=== PATIENT | female | born 1935 | race Caucasian/White ===

== ENCOUNTER → 2016-03-05 | Outpatient (CLI) | payer OTHER ==
[~2016-03-05] MED LIST: BUDE180I INH; CALCTAB5 PO; MELO7.5T6 PO; MULT-506 PO; MULT60CA PO; OMEG10007 PO; ZNTT/150 PO
[2016-03-05 10:47] LABS: BASO % 0.5 %; BASO ABS # 0.03 K/uL (0-0.2); COMPLETE YES; EOS % 1.7 %; HEMATOCRIT 40.4 % (37-47); IG% 0.2 %; LYMPH % 15.2 %; LYMPH ABS # 0.91 K/uL (1.2-3.4); MEAN CELL VOLUME 86.1 fL (80-100); MEAN CORPUSCULAR HEMOGLOBIN 30.3 pg (25-34); MEAN CORPUSCULAR HGB CONC 35.1 g/dl (32-36); MEAN PLATELET VOLUME 9.6 fL (7.4-10.4); NEUT % 73.4 %; PLATELET COUNT 234 K/uL (130-400); RED BLOOD COUNT 4.69 M/uL (4.2-5.4); WHITE BLOOD COUNT 5.98 K/uL (4.8-10.8)
[2016-03-05 11:26] LABS: ALT/SGPT 25 U/L (12-78); BLOOD UREA NITROGEN 12 mg/dl (7-18); BUN/CREATININE RATIO 15.4 (10-20); CALCIUM 9.8 mg/dl (8.5-10.1); CARBON DIOXIDE 30 mmol/L (21-32); CHLORIDE 102 mmol/L (98-107); CREATININE 0.76 mg/dl (0.60-1.20); GLUCOSE 87 mg/dl (70-99); POTASSIUM 4.4 mmol/L (3.5-5.1); SODIUM 141 mmol/L (136-145)
[2016-03-05 11:36] LABS: ALKALINE PHOSPHATASE 53 U/L (45-117); AST/SGOT 30 U/L (15-37)
== END | disposition home or self-care (01) ==
LOC: C.LAB1850 09:59
PROVIDERS: ATTEND Internal Medicine Pulmonary Disease
DX: M19.90 Unspecified osteoarthritis, unspecified site (principal); J45.909 Unspecified asthma, uncomplicated; K21.9 Gastro-esophageal reflux disease without esophagitis; E03.9 Hypothyroidism, unspecified

== ENCOUNTER → 2016-06-04 | Day surgery (SDC) | payer OTHER ==
[2016-05-29 09:15] VITALS: Ht 165.1 cm; Wt 85.0 kg
[~2016-06-04] VITALS: Ht 165.1 cm; Wt 85.0 kg
[~2016-06-04] MED LIST changes: +500ML BSS 0.3ML EPI 1:1000PF IRRIG ONE; +ACETAMINOPHEN 325 MG TAB PO PRN; +AMVISC PLUS 0.8ML SYRINGE INT OCU ONE; +ATROPINE SULFATE 0.1 MG/ML 5ML SYR IV PRN; +AcetaZOLAMIDE 250 MG TAB PO SCH; +BETAXOLOL HCL 0.25% OP SUSP PER DROP CHARGE OPL SCH; +BRIMONIDINE TART 0.2% OP SOLN PER DROP CHARGE ONE; +BSS FLUSH ONE; +ENDOCOAT 0.85ML SYRINGE INT OCU ONE; +EpHEDrine SULFATE INJ 50 MG/ML AMP IV PRN; +EpINEphrine INJ 1MG/ML AMP 1 MG/ML AMP ONE; +FENTANYL CITRATE INJ 50 MCG/1 ML 2 ML VIAL IV PRN; +FLUMAZENIL 0.1 MG/1 ML 10 ML VIAL IV PRN; +HYDROmorphone INJ 2 MG/ML SYR/VIAL IV PRN; +LABETALOL HCL IV 5 MG/ML 20ML IV PRN; +LACTATED RINGER'S 1000ML 500 ML IV SCH; +LIDOCAINE 4% OP SOLN DROP CHARGE ONE; +LIDOCAINE 4% OP SOLN DROP CHARGE OPL SCH; +LIDOCAINE HCL 1% MPF 2 ML VIAL ONE; +MEPERIDINE HCL 25 MG/ML CARP IV PRN; +MIDAZOLAM HCL 1 MG/ML 2ML VIAL ONE; +MIX: 4ML BSS 1ML EPI 1:1000 PF INSTIL ONE; +MOXIFLOXACIN OPH SOLN PER DROP CHARGE ONE; +NALOXONE HCL 0.4 MG/1 ML VIAL/CARP IV PRN; +OCUCOAT 1 ML SOLN IO ONE; +ONDANSETRON INJ 2 MG/ML 2 ML VIAL IV PRN; +PHENYLEPHRINE 100MCG/ML 5ML SYR IV PRN; +POVIDONE-IODINE OP SOLN 30 ML BTL ONE; +PROPARACAINE 0.5% OP SOLN PER DROP CHARGE OPL SCH; +TOBRAMYCIN/DEXAMETHASONE OPH OINT PER APPLN CHARGE ONE
--- NOTE | 2016-06-04 09:01 | History & Physical Bridge - [place] ---
H&P Re-Evaluation Bridge Note: I have examined the patient, reviewed the History & Physical and in the interval since the performance of the History & Physical I have noted the following changes of clinical significance: No changes noted
[2016-06-04] MEDS: PHENYLEPHRINE HCL 2.5% OP SOLN PER DROP CHARGE OPL SCH ×2 (10:41→10:46)
[2016-06-04] MEDS: TROPICAMIDE 1% OP SOLN PER DROP CHARGE OPL SCH ×2 (10:42→10:47)
[2016-06-04] MEDS: CYCLOPENTOLATE HCL 1% OP SOLN PER DROP CHARGE OPL SCH ×2 (10:43→10:48)
[2016-06-04] MEDS: MOXIFLOXACIN OPH SOLN PER DROP CHARGE OPL SCH ×2 (10:44→10:54)
--- NOTE | 2016-06-04 11:13 | Discharge Instructions-SurgCtr ---
Discharge Instructions Date of Service Jun 04, 2016. Visit Reason for Visit: Cataract Left Eye Discharge Discharge Diagnosis / Problem: lens implant left eye Discharge Goals Goal(s): Improve function Activity Recommendations Activity Limitations: resume your previous activity Lifting Limitations: no more than 10 pounds Exercise/Sports Limitations: gradually increase as tolerated May Resume Sexual Activity: when tolerated Shower/Bathe: tomorrow Driving or Machine Use: resume 1 day after discharge Anesthesia . Post Anesthesia Instructions: If you have had General Anesthesia or IV Sedation: * Do not drive today. * Resume driving when surgeon permits. * Do not make important decisions or sign legal documents today. * Call surgeon for: 1. Temperature elevations greater than 101 degrees F. 2. Uncontrollable pain. 3. Excessive bleeding. 4. Persistent nausea and vomiting. 5. Medication intolerance (nausea, vomiting or rash). * For nausea and vomiting use only clear liquids such as: tea, soda, bouillon until nausea subsides, then gradually increase diet as tolerated. * If you have any concerns or questions, call your surgeon's office. If physician is unavailable and it is an emergency, call 911 or go to the nearest emergency room. . Instructions / Follow-Up Instructions / Follow-Up ACTIVITY RECOMMENDATIONS: * Light activities. * Mild irritation and blurred vision are common for the first few days. * You may walk outside, read, watch television. * Redness around the white part of the eye is common. MEDICATIONS: Resume previous medications unless instructed otherwise by your surgeon. * Take white Diamox (Acetazolamide) tablet at 1 pm today. Start all eye drops at 1 pm today: * Eye drops (today and tomorrow): Prednisone - one drop in operative eye every 3 hours while awake Ofloxacin - one drop in operative eye every 3 hours while awake Ilevro - one drop in operative eye once a day SPECIAL CARE INSTRUCTIONS: * Tape plastic shield over eye to sleep at night. Call your doctor at with any concerns or problems. FOLLOW UP VISIT: Follow-up with Dr Ring at [place] office as scheduled. Diet Recommendations Home Diet: no limitations Procedures Procedures Performed: cataract extraction with lens implant Pending Studies Studies pending at discharge: no Medical Emergencies . Who to Call and When: Medical Emergencies: If at any time you feel your situation is an emergency, please call 911 immediately. . Non-Emergent Contact Non-Emergency issues call your: Procedures Nurse Call Non-Emergent contact if: your pain is not controlled [phone] . . "Provider Documentation" section prepared by Navid Ring.
--- NOTE | 2016-06-04 11:16 | [facility] Operative Report ---
Operative Report Date of Service Jun 04, 2016. Operative Report 1. PREOPERATIVE DIAGNOSIS: Senile nuclear cataract, left eye. 2. POSTOPERATIVE DIAGNOSIS: Senile nuclear cataract, left eye. 3. PROCEDURE: Phacoemulsification of left cataract with posterior chamber lens implant, type Jose, model [id number], power +26 diopters. ANESTHESIA: Local standby. SURGEON: Dr. Ring. COMPLICATIONS: None. OPERATING TIME: 10 minutes. 4. OPERATION AND FINDINGS: DESCRIPTION OF PROCEDURE: The left pupil was dilated. The anesthetic was administered using a topical technique. The left eye was prepped and draped. A speculum was placed. A clear corneal incision was formed. The chamber was filled with Amvisc Plus and Endocoat. Epinephrine solution was used. A paracentesis was placed. A capsulorrhexis was performed. The nucleus was hydrodissected. The lens was removed with phacoemulsification. Time was 3.28 seconds. The aspiration unit was used to remove the cortex. The capsule was filled with Amvisc Plus. The lens implant was folded and placed into the capsule. The implant was rotated to the proper position. The incision was hydrated. The Amvisc was aspirated. The wound was secure. The chamber was deep. The pupil was round. Brimonidine, TobraDex ointment and Vigamox solution were placed. The speculum was removed. The patient was returned to the Recovery Room in stable condition. I attest to the content of the Intraoperative Record and any orders documented therein. Any exceptions are noted below. The scribe's documentation has been prepared in my presence, under my direction and personally reviewed by me in its entirety. I confirm that the note above accurately reflects all work, treatment, procedures, and medical decision making performed by me. I personally scribed for Navid Ring M.D. ([email or web address]) on 06/04/16 at 11:16. Electronically submitted by Jessica Pathak ([email or web address]).
[2016-06-04 11:17] VITALS: TEMP 36.6
[2016-06-04 11:42] VITALS: BP 131/71; PULSE 88; O2SAT 98
--- NOTE | 2016-06-04 11:45 | Anesthesia Progress Nt - [facility] ---
Anesthesia Post Op Note Date & Time Jun 04, 2016 at 11:44 Vital Signs Pain Intensity: 0 Vital Signs Past 12 Hours Date Time Temp Pulse Resp B/P Pulse Ox O2 Delivery O2 Flow Rate FiO2 06/04/16 11:42 88 16 131/71 98 06/04/16 11:17 36.6 72 18 154/72 100 Room Air 06/04/16 10:25 36.5 79 16 140/82 100 Room Air Notes Mental Status: alert / awake / arousable, participated in evaluation Pt Amnestic to Procedure: Yes Nausea / Vomiting: adequately controlled Pain: adequately controlled Airway Patency, RR, SpO2: stable & adequate BP & HR: stable & adequate Hydration State: stable & adequate Anesthetic Complications: no major complications apparent
== END | disposition home or self-care (01) ==
LOC: X.SURG 09:58
PROVIDERS: ATTEND Specialist
DX: H25.12 Age-related nuclear cataract, left eye (principal); J45.909 Unspecified asthma, uncomplicated; K21.9 Gastro-esophageal reflux disease without esophagitis; M19.90 Unspecified osteoarthritis, unspecified site; Z68.30 Body mass index [BMI] 30.0-30.9, adult; E66.9 Obesity, unspecified; Z90.89 Acquired absence of other organs

== ENCOUNTER → 2016-07-04 | Outpatient (CLI) | payer OTHER ==
[~2016-07-04] MED LIST changes: -500ML BSS 0.3ML EPI 1:1000PF IRRIG ONE; -ACETAMINOPHEN 325 MG TAB PO PRN; -AMVISC PLUS 0.8ML SYRINGE INT OCU ONE; -ATROPINE SULFATE 0.1 MG/ML 5ML SYR IV PRN; -AcetaZOLAMIDE 250 MG TAB PO SCH; -BETAXOLOL HCL 0.25% OP SUSP PER DROP CHARGE OPL SCH; -BRIMONIDINE TART 0.2% OP SOLN PER DROP CHARGE ONE; -BSS FLUSH ONE; -ENDOCOAT 0.85ML SYRINGE INT OCU ONE; -EpHEDrine SULFATE INJ 50 MG/ML AMP IV PRN; -EpINEphrine INJ 1MG/ML AMP 1 MG/ML AMP ONE; -FENTANYL CITRATE INJ 50 MCG/1 ML 2 ML VIAL IV PRN; -FLUMAZENIL 0.1 MG/1 ML 10 ML VIAL IV PRN; -HYDROmorphone INJ 2 MG/ML SYR/VIAL IV PRN; -LABETALOL HCL IV 5 MG/ML 20ML IV PRN; -LACTATED RINGER'S 1000ML 500 ML IV SCH; -LIDOCAINE 4% OP SOLN DROP CHARGE ONE; -LIDOCAINE 4% OP SOLN DROP CHARGE OPL SCH; -LIDOCAINE HCL 1% MPF 2 ML VIAL ONE; -MEPERIDINE HCL 25 MG/ML CARP IV PRN; -MIDAZOLAM HCL 1 MG/ML 2ML VIAL ONE; -MIX: 4ML BSS 1ML EPI 1:1000 PF INSTIL ONE; -MOXIFLOXACIN OPH SOLN PER DROP CHARGE ONE; -NALOXONE HCL 0.4 MG/1 ML VIAL/CARP IV PRN; -OCUCOAT 1 ML SOLN IO ONE; -ONDANSETRON INJ 2 MG/ML 2 ML VIAL IV PRN; -PHENYLEPHRINE 100MCG/ML 5ML SYR IV PRN; -POVIDONE-IODINE OP SOLN 30 ML BTL ONE; -PROPARACAINE 0.5% OP SOLN PER DROP CHARGE OPL SCH; -TOBRAMYCIN/DEXAMETHASONE OPH OINT PER APPLN CHARGE ONE
--- NOTE | 2016-07-04 15:08 | MAMMOGRAPHY REPORT ---
BILATERAL DIGITAL SCREENING MAMMOGRAM WITH CAD: 07/04/2016 CLINICAL HISTORY: Routine screening. Patient has no complaints. TECHNIQUE: Current study was also evaluated with a Computer Aided Detection (CAD) system. Bilatera l CC and MLO views were obtained. COMPARISON: Comparison is made to exams dated: 07/03/2015 mammogram, 06/28/2014 mammogram, 06/27/2013 ma mmogram, 06/24/2012 mammogram, 06/23/2011 mammogram, and 06/19/2010 mammogram - [facility] nt. BREAST COMPOSITION: There are scattered areas of fibroglandular density in both breasts. FINDINGS: No suspicious masses, calcifications, or areas of architectural distortion are noted in e ither breast. There has been no significant interval change compared to prior exams. Scattered bilat eral benign-appearing calcifications are not significantly changed. IMPRESSION: ACR BI-RADS CATEGORY 2: BENIGN There is no mammographic evidence of malignancy. A 1 year screening mammogram is recommended. The p atient will receive written notification of the results. Approximately 10% of breast cancers are not detected with mammography. A negative mammographic repor t should not delay biopsy if a clinically suggestive mass is present. Manda Starkey M.D. /:07/04/2016 12:53:32 Green Chain Offbearer: Poppy CANO(Ravi)(Kwan)(BD), [facility] letter sent: Normal 1/2 BI-RADS Code: ACR BI-RADS Category 2: Benign
== END | disposition home or self-care (01) ==
LOC: C.MAMM 10:29
PROVIDERS: ATTEND Internal Medicine Pulmonary Disease
DX: Z12.31 Encounter for screening mammogram for malignant neoplasm of breast (principal)

== ENCOUNTER → 2016-07-16 | Day surgery (SDC) | payer OTHER ==
[2016-07-15 07:53] VITALS: Ht 165.1 cm; Wt 85.0 kg
[~2016-07-16] VITALS: Ht 165.1 cm; Wt 85.0 kg
[~2016-07-16] MED LIST changes: +500ML BSS 0.3ML EPI 1:1000PF IRRIG ONE; +ACETAMINOPHEN 325 MG TAB PO PRN; +AMVISC PLUS 0.8ML SYRINGE INT OCU ONE; +ATROPINE SULFATE 0.1 MG/ML 5ML SYR IV PRN; +AcetaZOLAMIDE 250 MG TAB PO SCH; +BETAXOLOL HCL 0.25% OP SUSP PER DROP CHARGE OPR SCH; +BRIMONIDINE TART 0.2% OP SOLN PER DROP CHARGE ONE; +BSS FLUSH ONE; +ENDOCOAT 0.85ML SYRINGE INT OCU ONE; +EpINEphrine INJ 1MG/ML AMP 1 MG/ML AMP ONE; +LACTATED RINGER'S 1000ML 500 ML IV SCH; +LIDOCAINE 4% OP SOLN DROP CHARGE ONE; +LIDOCAINE 4% OP SOLN DROP CHARGE OPR SCH; +LIDOCAINE HCL 1% MPF 2 ML VIAL ONE; +MIDAZOLAM HCL 1 MG/ML 2ML VIAL ONE; +MIX: 4ML BSS 1ML EPI 1:1000 PF INSTIL ONE; +MOXIFLOXACIN OPH SOLN PER DROP CHARGE ONE; +OCUCOAT 1 ML SOLN IO ONE; +POVIDONE-IODINE OP SOLN 30 ML BTL ONE; +PROPARACAINE 0.5% OP SOLN PER DROP CHARGE OPR SCH; +TOBRAMYCIN/DEXAMETHASONE OPH OINT PER APPLN CHARGE ONE
[2016-07-16] MEDS: TROPICAMIDE 1% OP SOLN PER DROP CHARGE OPR SCH ×2 (08:31→08:37)
[2016-07-16] MEDS: PHENYLEPHRINE HCL 2.5% OP SOLN PER DROP CHARGE OPR SCH ×2 (08:31→08:36)
[2016-07-16] MEDS: CYCLOPENTOLATE HCL 1% OP SOLN PER DROP CHARGE OPR SCH ×2 (08:32→08:40)
[2016-07-16] MEDS: MOXIFLOXACIN OPH SOLN PER DROP CHARGE OPR SCH ×2 (08:34→08:42)
--- NOTE | 2016-07-16 09:18 | Discharge Instructions-SurgCtr ---
Discharge Instructions Date of Service July 16, 2016. Visit Reason for Visit: Right Cataract Discharge Discharge Diagnosis / Problem: lens implant right eye Discharge Goals Goal(s): Improve function Activity Recommendations Activity Limitations: resume your previous activity Lifting Limitations: no more than 10 pounds Exercise/Sports Limitations: gradually increase as tolerated May Resume Sexual Activity: when tolerated Shower/Bathe: tomorrow Driving or Machine Use: resume 1 day after discharge Anesthesia . Post Anesthesia Instructions: If you have had General Anesthesia or IV Sedation: * Do not drive today. * Resume driving when surgeon permits. * Do not make important decisions or sign legal documents today. * Call surgeon for: 1. Temperature elevations greater than 101 degrees F. 2. Uncontrollable pain. 3. Excessive bleeding. 4. Persistent nausea and vomiting. 5. Medication intolerance (nausea, vomiting or rash). * For nausea and vomiting use only clear liquids such as: tea, soda, bouillon until nausea subsides, then gradually increase diet as tolerated. * If you have any concerns or questions, call your surgeon's office. If physician is unavailable and it is an emergency, call 911 or go to the nearest emergency room. . Instructions / Follow-Up Instructions / Follow-Up ACTIVITY RECOMMENDATIONS: * Light activities. * Mild irritation and blurred vision are common for the first few days. * You may walk outside, read, watch television. * Redness around the white part of the eye is common. MEDICATIONS: Resume previous medications unless instructed otherwise by your surgeon. * Take white Diamox (Acetazolamide) tablet at 1 pm today. Start all eye drops at 1 pm today: * Eye drops (today and tomorrow): Prednisone - one drop in operative eye every 3 hours while awake Ofloxacin - one drop in operative eye every 3 hours while awake SPECIAL CARE INSTRUCTIONS: * Tape plastic shield over eye to sleep at night. Call your doctor at with any concerns or problems. FOLLOW UP VISIT: Follow-up with Dr Ring at [place] office as scheduled. Diet Recommendations Home Diet: no limitations Procedures Procedures Performed: cataract extraction with lens implant Pending Studies Studies pending at discharge: no Medical Emergencies . Who to Call and When: Medical Emergencies: If at any time you feel your situation is an emergency, please call 911 immediately. . Non-Emergent Contact Non-Emergency issues call your: Software Development Specialist Call Non-Emergent contact if: your pain is not controlled [phone] . . "Provider Documentation" section prepared by Navid Ring. .
--- NOTE | 2016-07-16 09:20 | [facility] Operative Report ---
Operative Report Date of Service July 16, 2016. Operative Report 1. PREOPERATIVE DIAGNOSIS: Senile nuclear cataract, right eye. 2. POSTOPERATIVE DIAGNOSIS: Senile nuclear cataract, right eye. 3. PROCEDURE: Phacoemulsification of right cataract with posterior chamber lens implant, type Jose, model [id number], power +25.5 diopters. ANESTHESIA: Local standby. SURGEON: Dr. Ring. COMPLICATIONS: None. OPERATING TIME: 10 minutes. 4. OPERATION AND FINDINGS: DESCRIPTION OF PROCEDURE: The right pupil was dilated. The anesthetic was administered using a topical technique. The right eye was prepped and draped. A speculum was placed. A clear corneal incision was formed. The chamber was filled with Amvisc Plus and Endocoat. Epinephrine solution was used. A paracentesis was placed. A capsulorrhexis was performed. The nucleus was hydrodissected. The lens was removed with phacoemulsification. Time was 3.70 seconds. The aspiration unit was used to remove the cortex. The capsule was filled with Amvisc Plus. The lens implant was folded and placed into the capsule. The lens implant was rotated to the correct position. The incision was hydrated. The Amvisc was aspirated. The wound was secure. The chamber was deep. The pupil was round. Brimonidine, TobraDex ointment and Vigamox solution were placed. The speculum was removed. The patient was returned to the Recovery Room in stable condition. I attest to the content of the Intraoperative Record and any orders documented therein. Any exceptions are noted below. The scribe's documentation has been prepared in my presence, under my direction and personally reviewed by me in its entirety. I confirm that the note above accurately reflects all work, treatment, procedures, and medical decision making performed by me. I personally scribed for Navid Ring M.D. (KIKA) on 07/16/16 at 09:20. Electronically submitted by Jessica WAKEFIELD).
[2016-07-16 09:22] VITALS: TEMP 36.7
--- NOTE | 2016-07-16 09:39 | Anesthesia Progress Nt - [facility] ---
Anesthesia Post Op Note Date & Time July 16, 2016 at 09:40 Vital Signs Pain Intensity: 0 Vital Signs Past 12 Hours Date Time Temp Pulse Resp B/P Pulse Ox O2 Delivery O2 Flow Rate FiO2 07/16/16 09:22 36.7 87 16 121/74 96 Room Air 07/16/16 08:19 36.3 70 18 148/82 98 Room Air Notes Mental Status: alert / awake / arousable, participated in evaluation Pt Amnestic to Procedure: Yes Nausea / Vomiting: adequately controlled Pain: adequately controlled Airway Patency, RR, SpO2: stable & adequate BP & HR: stable & adequate Hydration State: stable & adequate Anesthetic Complications: no major complications apparent
[2016-07-16 09:42] VITALS: BP 112/76; PULSE 81; O2SAT 98
== END | disposition home or self-care (01) ==
LOC: X.SURG 08:04
PROVIDERS: ATTEND Specialist
DX: H25.11 Age-related nuclear cataract, right eye (principal); J45.909 Unspecified asthma, uncomplicated; E03.9 Hypothyroidism, unspecified; Z79.899 Other long term (current) drug therapy

== ENCOUNTER → 2017-03-10 | Outpatient (CLI) | payer OTHER ==
[~2017-03-10] MED LIST changes: -500ML BSS 0.3ML EPI 1:1000PF IRRIG ONE; -ACETAMINOPHEN 325 MG TAB PO PRN; -AMVISC PLUS 0.8ML SYRINGE INT OCU ONE; -ATROPINE SULFATE 0.1 MG/ML 5ML SYR IV PRN; -AcetaZOLAMIDE 250 MG TAB PO SCH; -BETAXOLOL HCL 0.25% OP SUSP PER DROP CHARGE OPR SCH; -BRIMONIDINE TART 0.2% OP SOLN PER DROP CHARGE ONE; -BSS FLUSH ONE; -ENDOCOAT 0.85ML SYRINGE INT OCU ONE; -EpINEphrine INJ 1MG/ML AMP 1 MG/ML AMP ONE; -LACTATED RINGER'S 1000ML 500 ML IV SCH; -LIDOCAINE 4% OP SOLN DROP CHARGE ONE; -LIDOCAINE 4% OP SOLN DROP CHARGE OPR SCH; -LIDOCAINE HCL 1% MPF 2 ML VIAL ONE; -MIDAZOLAM HCL 1 MG/ML 2ML VIAL ONE; -MIX: 4ML BSS 1ML EPI 1:1000 PF INSTIL ONE; -MOXIFLOXACIN OPH SOLN PER DROP CHARGE ONE; -OCUCOAT 1 ML SOLN IO ONE; -POVIDONE-IODINE OP SOLN 30 ML BTL ONE; -PROPARACAINE 0.5% OP SOLN PER DROP CHARGE OPR SCH; -TOBRAMYCIN/DEXAMETHASONE OPH OINT PER APPLN CHARGE ONE
[2017-03-10 09:47] LABS: BASO % 0.6 %; BASO ABS # 0.04 K/uL (0-0.2); EOS % 2.9 %; HEMATOCRIT 41.5 % (37-47); HEMOGLOBIN 14.4 g/dL (12.0-16.0); IG# 0.01 K/uL (0.00-0.02); LYMPH % 18.3 %; LYMPH ABS # 1.26 K/uL (1.2-3.4); MEAN CELL VOLUME 86.8 fL (80-100); MEAN CORPUSCULAR HEMOGLOBIN 30.1 pg (25-34); MEAN CORPUSCULAR HGB CONC 34.7 g/dl (32-36); MEAN PLATELET VOLUME 9.9 fL (7.4-10.4); MONO % 7.8 %; MONO ABS # 0.54 K/uL (0.11-0.59); NEUT % 70.3 %; NEUT ABS # 4.83 K/uL (1.4-6.5); PLATELET COUNT 228 K/uL (130-400); RED CELL DISTRIBUTION WIDTH CV 13.3 % (11.5-14.5); RED CELL DISTRIBUTION WIDTH SD 42.4 fL (36.4-46.3); WHITE BLOOD COUNT 6.88 K/uL (4.8-10.8)
[2017-03-10 10:15] LABS: ALBUMIN 3.5 gm/dl (3.4-5.0); ALT/SGPT 23 U/L (12-78); BLOOD UREA NITROGEN 14 mg/dl (7-18); CALCIUM 9.3 mg/dl (8.5-10.1); CARBON DIOXIDE 30 mmol/L (21-32); CREATININE 0.73 mg/dl (0.60-1.20); GLUCOSE 95 mg/dl (70-99); POTASSIUM 4.2 mmol/L (3.5-5.1); SODIUM 138 mmol/L (136-145)
[2017-03-10 10:26] LABS: ALKALINE PHOSPHATASE 53 U/L (45-117); AST/SGOT 30 U/L (15-37); TOTAL PROTEIN 7.4 gm/dl (6.4-8.2)
== END | disposition home or self-care (01) ==
LOC: C.LAB1850 08:56
PROVIDERS: ATTEND Internal Medicine Pulmonary Disease
DX: M19.90 Unspecified osteoarthritis, unspecified site (principal); J45.909 Unspecified asthma, uncomplicated; E03.9 Hypothyroidism, unspecified; K21.9 Gastro-esophageal reflux disease without esophagitis; H35.30 Unspecified macular degeneration

== ENCOUNTER → 2017-06-19 | Outpatient (CLI) | payer OTHER ==
[~2017-06-19] MED LIST changes: +RANI150T85 PO; -ZNTT/150 PO
--- NOTE | 2017-06-19 11:51 | DIAGNOSTIC IMAGING REPORT ---
L-SPINE MIN 4 VIEWS ROUTINE HISTORY: 82 years-old Female M54.30 M51.36 R25.1 chronic low back pain COMPARISON: Pelvis radiograph 09/02/2010 TECHNIQUE: 5 views of the lumbar spine FINDINGS: 23 degrees dextroscoliosis of the lumbar spine measured from L2-L4. There is no acute fracture or subluxation identified. Moderate to severe intervertebral disc space narrowing seen at the L3-L4 level. Mild to moderate intervertebral disc space narrowing is seen at several levels. Moderate multilevel spondylitic spurring with facet arthrosis. Large bridging osteophyte is seen at the L5-S1 level. No definite acute fracture or subluxation is identified. Moderate Schmorl's node involves the superior endplate L2. No spondylolysis or spondylolisthesis identified. Surgical clips project over the right abdomen. Atherosclerosis of the aorta. IMPRESSION: 1. No acute fracture or subluxation identified. 2. Multilevel degenerative changes as above. 3. Dextroscoliosis. The above report was generated using voice recognition software. It may contain grammatical, syntax or spelling errors. Electronically signed by: Alf Piña M.D. 06/19/2017 11:49 AM Dictated Date/Time: 06/19/2017 11:47 AM
[2017-06-19 12:35] LABS: BASO % 0.5 %; BASO ABS # 0.03 K/uL (0-0.2); EOS % 0.9 %; EOS ABS # 0.06 K/uL (0-0.5); HEMATOCRIT 39.8 % (37-47); HEMOGLOBIN 13.9 g/dL (12.0-16.0); IG# 0.01 K/uL (0.00-0.02); LYMPH % 13.5 %; LYMPH ABS # 0.87 K/uL (1.2-3.4); MEAN CELL VOLUME 85.4 fL (80-100); MEAN CORPUSCULAR HEMOGLOBIN 29.8 pg (25-34); MEAN CORPUSCULAR HGB CONC 34.9 g/dl (32-36); MEAN PLATELET VOLUME 9.4 fL (7.4-10.4); MONO % 9.9 %; MONO ABS # 0.64 K/uL (0.11-0.59); NEUT ABS # 4.85 K/uL (1.4-6.5); PLATELET COUNT 212 K/uL (130-400); RED CELL DISTRIBUTION WIDTH CV 13.3 % (11.5-14.5); RED CELL DISTRIBUTION WIDTH SD 40.9 fL (36.4-46.3); WHITE BLOOD COUNT 6.46 K/uL (4.8-10.8)
[2017-06-19 13:15] LABS: ALBUMIN 3.6 gm/dl (3.4-5.0); ALT/SGPT 25 U/L (12-78); AST/SGOT 32 U/L (15-37); BLOOD UREA NITROGEN 16 mg/dl (7-18); CALCIUM 8.7 mg/dl (8.5-10.1); CARBON DIOXIDE 31 mmol/L (21-32); CREATININE 0.82 mg/dl (0.60-1.20); GLUCOSE 96 mg/dl (70-99); POTASSIUM 4.4 mmol/L (3.5-5.1); SODIUM 137 mmol/L (136-145)
[2017-06-19 13:25] LABS: ALKALINE PHOSPHATASE 56 U/L (45-117); TOTAL PROTEIN 7.4 gm/dl (6.4-8.2)
== END | disposition home or self-care (01) ==
LOC: C.RAD1850 11:22
PROVIDERS: ATTEND Internal Medicine Pulmonary Disease
DX: M51.36 Other intervertebral disc degeneration, lumbar region (principal); M54.30 Sciatica, unspecified side; R25.1 Tremor, unspecified; M47.816 Spondylosis without myelopathy or radiculopathy, lumbar region

== ENCOUNTER → 2017-06-26 | Outpatient (CLI) | payer OTHER ==
--- NOTE | 2017-06-26 10:37 | DIAGNOSTIC IMAGING REPORT ---
R HIP UNILATERAL 2 VIEWS CLINICAL HISTORY: Right hip pain. COMPARISON: Pelvis and right hip radiograph September 02, 2010. FINDINGS: Alignment of the right hip is anatomic. Calcific density along the greater trochanter is chronic. There is no fracture or suspicious lesion. There is mild joint space narrowing and moderate osteophytosis of the right hip. There is no radiographic evidence for avascular necrosis. IMPRESSION: 1. No acute fracture. 2. Mild to moderate osteoarthritis of the right hip. Electronically signed by: Luis Valladares M.D. 06/26/2017 10:36 AM Dictated Date/Time: 06/26/2017 10:34 AM
== END | disposition home or self-care (01) ==
LOC: C.RAD1850 10:21
PROVIDERS: ATTEND Physician Assistant Medical
DX: M25.551 Pain in right hip (principal)

== ENCOUNTER → 2017-07-06 | Outpatient (CLI) | payer OTHER ==
--- NOTE | 2017-07-07 15:04 | MAMMOGRAPHY REPORT ---
BILATERAL DIGITAL SCREENING MAMMOGRAM TOMOSYNTHESIS WITH CAD: 07/06/2017 CLINICAL HISTORY: Routine screening. Patient has no complaints. TECHNIQUE: Breast tomosynthesis in addition to standard 2D mammography was performed. Current study was also evaluated with a Computer Aided Detection (CAD) system. COMPARISON: Comparison is made to exams dated: 07/04/2016 mammogram, 07/03/2015 mammogram, 06/28/2014 ma mmogram, 06/27/2013 mammogram, 06/24/2012 mammogram, and 06/23/2011 mammogram - [facility] er. BREAST COMPOSITION: There are scattered areas of fibroglandular density in both breasts. FINDINGS: There are mild to moderate vascular calcifications in the breasts. Scattered benign-appear ing coarse and round calcification. No obvious new mass, architectural distortion or cluster of micr ocalcifications is seen. IMPRESSION: ACR BI-RADS CATEGORY 1: NEGATIVE There is no mammographic evidence of malignancy. A 1 year screening mammogram is recommended. The pa tient will receive written notification of the results. Approximately 10% of breast cancers are not detected with mammography. A negative mammographic report should not delay biopsy if a clinically suggestive mass is present. Velia Segura M.D. ay/:07/06/2017 16:54:28 Cold Patcher: Poppy CHAMPAGNE)(Kwan)([place]), [facility] letter sent: Normal 1/2 BI-RADS Code: ACR BI-RADS Category 1: Negative
== END | disposition home or self-care (01) ==
LOC: C.MAMM 11:40
PROVIDERS: ATTEND Internal Medicine Pulmonary Disease
DX: Z12.31 Encounter for screening mammogram for malignant neoplasm of breast (principal)

== ENCOUNTER 2022-09-16 21:10 | Inpatient (IN) ==
--- NOTE | 2022-09-16 21:32 | Emergency Department Note ---
Impression & Plan Fall, SAH (subarachnoid hemorrhage), Comfort measures only status, AMS (altered mental status), Laceration of eyebrow, right ED Provider Note Provider: Xu Fish MD DATE OF SERVICE: 09/16/2022 CHIEF COMPLAINT: Fall, unresponsive HISTORY OF PRESENT ILLNESS: Patient is a 87-year-old female past medical history including aortic stenosis status post TAVR, GERD, asthma, arthritis, and hypothyroidism presenting today via ambulance from her home. Last seen by me around 1 PM according to family. Evidently found by granddaughter in a walkway in her house had fallen. There is bleeding and evidence of trauma to the right upper head and the patient was nonverbal. May be flexed her hand little bit to stimuli but was otherwise unresponsive. EMS activated. Wound to the head reported by EMS and the patient is again minimally responsive. Helicopter crew was called but family produce a living will and states that the patient would not want any aggressive measures and want comfort measures for the patient. As such EMS did not provide RSI and provide a small mount of fentanyl Versed for comfort and patient was brought here for further evaluation. Upon arrival patient with nonrebreather in c-collar placed on a backboard not responding. Right tibial IO in place upon arrival PAST MEDICAL HISTORY: As noted above MEDICATIONS: Reviewed home medications includes aspirin SOCIAL HISTORY: Resides at her home PHYSICAL EXAM: GENERAL: Unresponsive to painful stimuli with agonal breathing nonrebreather in place Head: Appears to have a small right eyebrow laceration ~2cm with dried blood and matted blood throughout the hair. Contusion to the right face and head and around the right eye. EYES: No injection or icterus noted with dried blood again diffusely across the face. Pupils 2 mm and fixed bilaterally NECK: Trachea midline. Supple c-collar initially in place ENT: Patient with some dried blood across the mouth occasionally a bit of gurgling sound noted. LUNGS: Airway patent. No retractions. Breath sounds noted bilaterally. HEART: Regular rate and rhythm. No chest wall tenderness ABDOMEN: Soft and non-tender without obvious contusion. SKIN: Acyanotic with dried blood and skin tears as detailed here otherwise. EXTREMITIES: Patient with skin tears to the right forearm and elbow region. Some dried blood present across right upper extremity. Right tibial IO in place. NEUROLOGICAL: Unresponsive to painful stimuli with a clenched mouth. Differential includes Fracture, dislocation, contusion, intra-abdominal, pneumothorax, intrathoracic, intracranial, neurologic, compartment syndrome, rhabdomyolysis, as well as other pathologies. IMPRESSION/MEDICAL DECISION MAKING: EMS arrived with the patient. They have a living will stating the patient would not want aggressive measures. Patient with nursing staff assistance removed from backboard. Nonrebreather in place agonal breathing nonresponsive. Family in the waiting room and discussed with them patient's status and they all agree that the patient would not want any aggressive measures or intubation. They report that the patient may be on a blood thinner. Were agreeable to obtain basic imaging to evaluate for severity of injuries for prognostication purposes. They agree that the goal at this time will be comfort. Will defer labs given this. CTs obtained per radiology reports show evidence of acute subarachnoid hemorrhage with bilateral frontal and parietal lobes with some right frontal temporal soft tissue swelling. No evidence of a cervical spine injury. No evidence of any significant chest or abdominal injury on reports. Discussed with the hospitalist met with the hospitalist as well as the patient's family in room B2. Discussed with him the seriousness of the head injury and breathing. They confirmed the patient would not want any aggressive measures or transfer for tertiary care or neurosurgical intervention. They wish to pursue comfort measures. Comfort measure order set initiated. Subarachnoid hemorrhage is serious and with her somewhat tenuous respiratory status with comfort medication time to expiration may be somewhat tenuous. Will defer any additional blood draws or testing or suture repair at this time given her comfort measure status. We will not utilize the IO but will leave in place to prevent any additional discomfort at this time with removal. DIAGNOSIS: Fall, subarachnoid hemorrhage, transition to comfort measures DISPOSITION: Hospitalist will evaluate as the patient and family wish to pursue comfort measures Critical Care I have personally spent 33 minutes of critical care time in the direct management of this patient. This includes bedside care, interpretation of diagnostic studies, and testing, discussion with consultants, and family members, and other required patient management activities. These 33 minutes is in excess of all separately billable procedures. Past Med/Surg History Medical History Aortic stenosis Arthritis Asthma Disc degeneration, lumbar GERD without esophagitis Hypothyroidism Macular degeneration Surgical History History of cholecystectomy History of thyroid surgery sub-total thyroidectomy S/P partial colectomy Status post colonoscopy (2009) Family History Aunt Diabetes Uncle Diabetes Social History Smoking Status: Unknown if ever smoked Hx Alcohol Use: No Hx Substance Use: No Preferred Language: Yi Communication Ability: Effective Beliefs That Will Affect Care: None marital status: / Current Living Situation: Alone current occupational status: retired Feels Safe at Home: Yes Assistive Devices: None Allergies Allergies Allergy/AdvReac Type Severity Reaction Status Date / Time prednisone Allergy edema Verified 05/19/22 10:45 acetaminophen AdvReac Mild STOMACH Verified 05/19/22 10:45 CRAMPS Home Meds Home Medications Medication Instructions Recorded Confirmed multivitamin (Daily Multi-Vitamin 1 tab PO DAILY 10/01/18 09/06/22 tablet) aspirin 81 mg tablet,delayed 81 mg PO DAILY 12/14/19 09/06/22 release levothyroxine 125 mcg tablet 125 mcg PO DAILYBB 09/06/22 09/06/22 metoprolol succinate 25 mg 12.5 mg PO HS 09/06/22 09/06/22 tablet,extended release 24 hr omega-3s 300 xe-sbs-zyd-other 1 cap PO DAILY 09/06/22 09/06/22 [id number] oil 1,000 mg capsule ([place]-3 Fish Oil) Results & Data (ED) Vital Signs Vital Signs - 24 hr 09/16/22 21:19 09/16/22 21:28 09/16/22 22:04 Temperature 35.8 C L Temperature Source Rectal Pulse Rate 64 56 L 53 L Pulse Rate from SpO2 Sensor 51 L Pulse Rhythm Regular Pulse Strength Normal Respiratory Rate 24 25 H Respiratory Effort / Characteristics Labored Respiratory Depth Shallow Respiratory Pattern See-Saw Blood Pressure 129/64 174/59 H Blood Pressure Mean 85 97 Pulse Oximetry 100 100 Oxygen Delivery Method Non-rebreather Non-rebreather Oxygen Flow Rate 15 15 Sepsis Recent Fever Within 48 Hours No Sepsis New/Unexplained Change in Mental Status N/A Sepsis Action Taken by Nursing No Action Required Imaging Data Radiologist's Impression: Abdomen/Pelvis CT 09/16/22 21:26 Exam(s): CT ABDOMEN + PELVIS Without Contrast EXAM: CT Abdomen and Pelvis Without Intravenous Contrast CLINICAL HISTORY: Reason for exam: fall. TECHNIQUE: Axial computed tomography images of the abdomen and pelvis without intravenous contrast. CTDI is 22.23 mGy and DLP is 1051.25 mGy-cm. Automated exposure control was utilized for the study. A dose lowering technique was utilized adhering to the principles of ALARA. COMPARISON: No relevant prior studies available. FINDINGS: Lung bases: Unremarkable. No mass. No consolidation. Heart: Prosthetic aortic valve. ABDOMEN: Liver: Unremarkable. Gallbladder and bile ducts: Cholecystectomy. No ductal dilation. Pancreas: Unremarkable. No ductal dilation. Spleen: Calcified splenic granulomas. Adrenals: Unremarkable. No mass. Kidneys and ureters: Nonobstructing 4 mm RIGHT lower pole renal calculus. Left-sided parapelvic cysts. No obstructive uropathy. Stomach and bowel: Diverticulosis, without acute diverticulitis. No small bowel obstruction. No free intraperitoneal air. PELVIS: Appendix: No findings to suggest acute appendicitis. Bladder: Distended urinary bladder. No stones. Reproductive: Atrophied uterus. ABDOMEN and PELVIS: Intraperitoneal space: Unremarkable. No free air. No significant fluid collection. Bones/joints: Degenerative changes of the spine. No acute fracture. No dislocation. Soft tissues: Unremarkable. Vasculature: Atherosclerotic changes of the aorta. No abdominal aortic aneurysm. Lymph nodes: Unremarkable. No enlarged lymph nodes. IMPRESSION: No acute findings in the abdomen or pelvis. Electronically signed by: Yonatan Rendon MD 09/16/22 22:[address] 09/16/22 21:26 Exam(s): CT C SPINE EXAM: CT Cervical Spine Without Intravenous Contrast CLINICAL HISTORY: Reason for exam: fall. TECHNIQUE: Axial computed tomography images of the cervical spine without intravenous contrast. CTDI is 22.64 mGy and DLP is 438.92 mGy-cm. Automated exposure control was utilized for the study. A dose lowering technique was utilized adhering to the principles of ALARA. COMPARISON: No relevant prior studies available. FINDINGS: The vertebral body heights are maintained. The craniocervical junction is intact. The atlanto-dens interval is maintained. The dens is intact. There is no spondylolisthesis. Multilevel cervical spondylosis and degenerative disc disease. Straightening of the cervical lordosis. The unenhanced neck soft tissues are grossly unremarkable. The visualized lung apices are grossly clear. IMPRESSION: No acute fracture or subluxation of the cervical spine. Electronically signed by: Yonatan Rendon MD 09/16/22 22:[address] 09/16/22 21:26 Exam(s): CT CHEST Without Contrast EXAM: CT Chest Without Intravenous Contrast CLINICAL HISTORY: Reason for exam: fall. TECHNIQUE: Axial computed tomography images of the chest without intravenous contrast. CTDI is 19 mGy and DLP is 680.79 mGy-cm. Automated exposure control was utilized for the study. A dose lowering technique was utilized adhering to the principles of ALARA. COMPARISON: No relevant prior studies available. FINDINGS: Lungs: Mild atelectasis in the RIGHT upper lobe and LEFT lung base. Pleural space: Unremarkable. No pneumothorax. No significant effusion. Heart: Prosthetic aortic valve. No significant pericardial effusion. No significant coronary artery calcifications. Bones/joints: Degenerative changes of the spine. No acute fracture. No dislocation. Soft tissues: Unremarkable. Vasculature: Atherosclerotic changes of the aorta. No thoracic aortic aneurysm. Lymph nodes: Unremarkable. No enlarged lymph nodes. IMPRESSION: No acute findings in the chest. Electronically signed by: Yonatan Rendon MD 09/16/22 22:[address] 09/16/22 21:26 CR Exam(s): CT HEAD Without Contrast EXAM: CT Head Without Intravenous Contrast CLINICAL HISTORY: Reason for exam: fall. TECHNIQUE: Axial computed tomography images of the head/brain without intravenous contrast. CTDI is 37.01 mGy and DLP is 546.36 mGy-cm. Automated exposure control was utilized for the study. A dose lowering technique was utilized adhering to the principles of ALARA. COMPARISON: No relevant prior studies available. FINDINGS: Acute subarachnoid hemorrhage in the bilateral frontal and parietal lobe sulci. RIGHT frontal and temporal scalp soft tissue swelling. Chronic LEFT subdural hematoma measures 7 mm in maximal thickness. Chronic RIGHT subdural hematoma measures 4 mm in maximal thickness. No intraventricular blood. No midline shift. IMPRESSION: Acute subarachnoid hemorrhage in the bilateral frontal and parietal lobe sulci. RIGHT frontal and temporal scalp soft tissue swelling. Communications: Verify Receipt Electronically signed by: Yonatan Rendon MD 09/16/22 22:03 PM Discharge Plan Visit Data Chief Complaint: Trauma ED Provider: Xu Fish Discharge Problem: Fall, SAH (subarachnoid hemorrhage), Comfort measures only status, AMS (altered mental status), Laceration of eyebrow, right Patient Disposition: Being Evaluated by Hospitalist Forms Stand Alone Forms: My [facility] Prescriptions Prescriptions: No Action multivitamin [Daily Multi-Vitamin] tablet 1 tab PO DAILY aspirin 81 mg tablet,delayed release (DR/EC) 81 mg PO DAILY levothyroxine 125 mcg tablet 125 mcg PO DAILYBB metoprolol succinate 25 mg tablet extended release 24 hr 12.5 mg PO HS [place]-3 Fish Oil 300-1,000 mg Capsule 1 cap PO DAILY Referrals Referrals: Rhett Levine MD [Primary Care Provider] - Fall Qualifiers: Encounter type: initial encounter Qualified Code(s): W19.XXXA - Unspecified fall, initial encounter
--- NOTE | 2022-09-16 21:42 | History & Physical Report ---
Date of Service September 16, 2022 Assessment & Plan (1) SAH (subarachnoid hemorrhage): Plan: [employer] - On admission patient was seen at the bedside with multiple family present including 2 daughters, granddaughters, and in-laws. [id number] reports that she was found down with her last known normal around 11:30 in the morning, was seen lying on the ground and EMS was called. She was unresponsive in the field. Per family she had a very clear advanced directive and had not wanted any invasive interventions or artificial prolongation of her life. With her current level of illness all family members agree that she would want to focus purely on comfort and family request moved to comfort measures. They are aware that she has a subarachnoid bleed which would typically be treated at a trauma center with neurosurgery available and with intensive care admission to follow for careful blood pressure control and seizure prevention. they report that they would not want aggressive interventions including ICU admission, and all family agrees that they would like her to be admitted to the third floor here for [employer]. Would like to focus on a palliative stent including morphine either by oral or drip, anxiety control, and deferring vital checks and any monitoring disruptive to her comfort. Tachypneic, on nonrebreather initial assessment Does not withdraw to thumb pinch bilaterally Pupils are slightly reactive to light bilaterally, does not track light or follow commands Patient is with respiratory distress, morphine GTT started while in ER. Continue morphine gtt Ativan ordered for comfort Comfort care order set including glycopyrrolate on-call Patient is with a right IO in place, will leave for analgesic assess's and is more likely to cause discomfort during removal Palliative care consulted Wean oxygen patient comfort permitting Family at bedside, updated. Patient is unresponsive and in mild respiratory distress. Due to her acute level of illness is not appropriate for and unlikely to survive transition to home hospice if attempted at this time. Will admit to inpatient [employer] Fall, SAH -CT-Head: Acute subarachnoid hemorrhage in the bilateral frontal and parietal lobe sulci.RIGHT frontal and temporal scalp soft tissue swelling. -CT-CHest: No acute findings in the chest. -CT C SPine: No acute fracture or subluxation of the cervical spine. -CT-A/p: No acute findings in the abdomen or pelvis. Aortic stenosis s/p TAVR 08/2019 Prior to TAVR in 2019 was noted to have a 50-60% isolated LAD lesion on pre- TAVR cath Noted Hypothyroidism Synthroid 125 mcg deferred in the setting of [employer] Asthma No home inhaler, no Hypertension Metoprolol, aspirin held in the setting of CM Primary adenocarcinoma of the colon Noted DVT prophylaxis: Deferred Diet: Unable to tolerate diet as is obtunded at time of admission CODE STATUS: DNR/DNI Disposition: Medical surgical incision (2) Comfort measures only status: (3) CHI (closed head injury): (4) Fall: (5) S/P TAVR (transcatheter aortic valve replacement): (6) Hypothyroidism: (7) GERD without esophagitis: (8) Asthma: (9) Arthritis: History of Present Illness Primary Care Provider: Rhett Levine MD Marianela Lopez is an 87-year-old female With past medical history of TAVR, GERD, asthma, arthritis, hypothyroidism. Per ER report: Patient was found down by family in her home with bleeding at the right upper head, nonverbal, flexed position and unresponsive. EMS was called and patient was noted to be minimally responsive. Patient was recommended for RSI in the field however family noted that she has a living will and does not want a measure of measures and would want comfort measures given the situation, intubation was deferred and patient was brought to [facility] in a c-collar Patient was seen at the bedside with multiple family present including 2 daughters, granddaughters, and in-laws. [id number] reports that she was found down with her last known normal around 11:30 in the morning, was seen lying on the ground and EMS was called. She was unresponsive in the field. Per family she had a very clear advanced directive and had not wanted any invasive interventions or artificial prolongation of her life. With her current level of illness all family members agree that she would want to focus purely on comfort and family request moved to comfort measures. They are aware that she has a subarachnoid bleed which would typically be treated at a trauma center with neurosurgery available and with intensive care admission to follow for careful blood pressure control and seizure prevention. they report that they would not want aggressive interventions including ICU admission, and all family agrees that they would like her to be admitted to the third floor here for [employer]. Would like to focus on a palliative stent including morphine either by oral or drip, anxiety control, and deferring vital checks and any monitoring disruptive to her comfort. Medical History: Reviewed Medications: Reviewed Surgical History: Reviewed Family history: Reviewed Allergies: Reviewed Social History: Reviewed Code Status: [employer], DNR/DNI Allergies Allergy/AdvReac Type Severity Reaction Status Date / Time prednisone Allergy edema Verified 05/19/22 10:45 acetaminophen AdvReac Mild STOMACH Verified 05/19/22 10:45 CRAMPS Home Medications Medication Instructions Recorded Confirmed Type multivitamin (Daily Multi-Vitamin 1 tab PO DAILY 10/01/18 09/06/22 History tablet) aspirin 81 mg tablet,delayed 81 mg PO DAILY 12/14/19 09/06/22 History release levothyroxine 125 mcg tablet 125 mcg PO DAILYBB 09/06/22 09/06/22 History metoprolol succinate 25 mg 12.5 mg PO HS 09/06/22 09/06/22 History tablet,extended release 24 hr omega-3s 300 hy-uum-yqk-other 1 cap PO DAILY 09/06/22 09/06/22 History [id number] oil 1,000 mg capsule ([place]-3 Fish Oil) Past Med/Surg History Medical History Aortic stenosis Arthritis Asthma Disc degeneration, lumbar GERD without esophagitis Hypothyroidism Macular degeneration Surgical History History of cholecystectomy History of thyroid surgery sub-total thyroidectomy S/P partial colectomy Status post colonoscopy (2009) Family History Aunt Diabetes Uncle Diabetes Social History Smoking Status: Never smoker Hx Alcohol Use: No Hx Substance Use: No Preferred Language: R[place] Communication Ability: Effective Beliefs That Will Affect Care: None marital status: / Current Living Situation: Alone current occupational status: retired Feels Safe at Home: Yes Assistive Devices: None Review of Systems Review of Systems: Unobtainable due to reduced consciousness Physical Exam Physical Exam: General: Unresponsive. Does not follow 1 or 2 step commands or open eyes on command. HEENT: Right eye with orbital hematoma and small laceration. Pupils equal and reactive to light, does not track light Pulm: Tachypneic, increased work of breathing on nonrebreather. Lungs are grossly clear and without wheezing Cardiac: Bradycardic, SM. Radial pulses intact and symmetrical. Abdominal: nondistended, soft. BS present. Extremities: Right lower extremity IO access in place. Sensation/strength te sting limited by obtunded status. Does not withdraw to thumb pinch bilaterally Results & Data Results & Data Vital Signs (Past 12 Hours) Vital Signs Pulse 09/16/22 21:28 56 L PG Care Time/CCT Total # of Minutes Spent Total Time Spent with Patient: Total time spent is greater than 50% in coordination of care (as documented) at patient's floor/unit and/or counseling patient: Coding Level of Care Code 72728 INT INP/OBS CARE 375MIN Diagnoses SAH (subarachnoid hemorrhage) I60.9 Comfort measures only status Z51.5 CHI (closed head injury) S09.90XA Fall W19.XXXA Encounter type: initial encounter S/P TAVR (transcatheter aortic valve replacement) Z95.2 Hypothyroidism E03.9 GERD without esophagitis K21.9 Asthma J45.909 Arthritis M19.90 (4) Fall Encounter type: initial encounter Qualified Code(s): W19.XXXA - Unspecified fall, initial encounter
--- NOTE | 2022-09-16 22:04 | CT Scan Report ---
Exam(s): CT HEAD Without Contrast EXAM: CT Head Without Intravenous Contrast CLINICAL HISTORY: Reason for exam: fall. TECHNIQUE: Axial computed tomography images of the head/brain without intravenous contrast. CTDI is 37.01 mGy and DLP is 546.36 mGy-cm. Automated exposure control was utilized for the study. A dose lowering technique was utilized adhering to the principles of ALARA. COMPARISON: No relevant prior studies available. FINDINGS: Acute subarachnoid hemorrhage in the bilateral frontal and parietal lobe sulci. RIGHT frontal and temporal scalp soft tissue swelling. Chronic LEFT subdural hematoma measures 7 mm in maximal thickness. Chronic RIGHT subdural hematoma measures 4 mm in maximal thickness. No intraventricular blood. No midline shift. IMPRESSION: Acute subarachnoid hemorrhage in the bilateral frontal and parietal lobe sulci. RIGHT frontal and temporal scalp soft tissue swelling. Communications: Verify Receipt Electronically signed by: Yonatan Rendon MD 09/16/22 22:03 PM
--- NOTE | 2022-09-16 22:05 | CT Scan Report ---
Exam(s): CT C SPINE EXAM: CT Cervical Spine Without Intravenous Contrast CLINICAL HISTORY: Reason for exam: fall. TECHNIQUE: Axial computed tomography images of the cervical spine without intravenous contrast. CTDI is 22.64 mGy and DLP is 438.92 mGy-cm. Automated exposure control was utilized for the study. A dose lowering technique was utilized adhering to the principles of ALARA. COMPARISON: No relevant prior studies available. FINDINGS: The vertebral body heights are maintained. The craniocervical junction is intact. The atlanto-dens interval is maintained. The dens is intact. There is no spondylolisthesis. Multilevel cervical spondylosis and degenerative disc disease. Straightening of the cervical lordosis. The unenhanced neck soft tissues are grossly unremarkable. The visualized lung apices are grossly clear. IMPRESSION: No acute fracture or subluxation of the cervical spine. Electronically signed by: Yonatan Rendon MD 09/16/22 22:04 PM
--- NOTE | 2022-09-16 22:06 | CT Scan Report ---
Exam(s): CT CHEST Without Contrast EXAM: CT Chest Without Intravenous Contrast CLINICAL HISTORY: Reason for exam: fall. TECHNIQUE: Axial computed tomography images of the chest without intravenous contrast. CTDI is 19 mGy and DLP is 680.79 mGy-cm. Automated exposure control was utilized for the study. A dose lowering technique was utilized adhering to the principles of ALARA. COMPARISON: No relevant prior studies available. FINDINGS: Lungs: Mild atelectasis in the RIGHT upper lobe and LEFT lung base. Pleural space: Unremarkable. No pneumothorax. No significant effusion. Heart: Prosthetic aortic valve. No significant pericardial effusion. No significant coronary artery calcifications. Bones/joints: Degenerative changes of the spine. No acute fracture. No dislocation. Soft tissues: Unremarkable. Vasculature: Atherosclerotic changes of the aorta. No thoracic aortic aneurysm. Lymph nodes: Unremarkable. No enlarged lymph nodes. IMPRESSION: No acute findings in the chest. Electronically signed by: Yonatan Rendon MD 09/16/22 22:05 PM
--- NOTE | 2022-09-16 22:12 | CT Scan Report ---
Exam(s): CT ABDOMEN + PELVIS Without Contrast EXAM: CT Abdomen and Pelvis Without Intravenous Contrast CLINICAL HISTORY: Reason for exam: fall. TECHNIQUE: Axial computed tomography images of the abdomen and pelvis without intravenous contrast. CTDI is 22.23 mGy and DLP is 1051.25 mGy-cm. Automated exposure control was utilized for the study. A dose lowering technique was utilized adhering to the principles of ALARA. COMPARISON: No relevant prior studies available. FINDINGS: Lung bases: Unremarkable. No mass. No consolidation. Heart: Prosthetic aortic valve. ABDOMEN: Liver: Unremarkable. Gallbladder and bile ducts: Cholecystectomy. No ductal dilation. Pancreas: Unremarkable. No ductal dilation. Spleen: Calcified splenic granulomas. Adrenals: Unremarkable. No mass. Kidneys and ureters: Nonobstructing 4 mm RIGHT lower pole renal calculus. Left-sided parapelvic cysts. No obstructive uropathy. Stomach and bowel: Diverticulosis, without acute diverticulitis. No small bowel obstruction. No free intraperitoneal air. PELVIS: Appendix: No findings to suggest acute appendicitis. Bladder: Distended urinary bladder. No stones. Reproductive: Atrophied uterus. ABDOMEN and PELVIS: Intraperitoneal space: Unremarkable. No free air. No significant fluid collection. Bones/joints: Degenerative changes of the spine. No acute fracture. No dislocation. Soft tissues: Unremarkable. Vasculature: Atherosclerotic changes of the aorta. No abdominal aortic aneurysm. Lymph nodes: Unremarkable. No enlarged lymph nodes. IMPRESSION: No acute findings in the abdomen or pelvis. Electronically signed by: Yonatan Rendon MD 09/16/22 22:11 PM
[2022-09-16] MEDS ORDERED: LORazepam 0.5 MG TAB PO PRN (22:14)
[2022-09-16] MEDS ORDERED: LORazepam 2 MG/1 ML VIAL IV PRN (22:14)
[2022-09-16] MEDS ORDERED: GLYCOPYRROLATE 0.2 MG/ML VIAL IV PRN (22:14)
[2022-09-16] MEDS ORDERED: STAT IV Infusion **Titration per Protocol STA (22:14)
[2022-09-16] MEDS ORDERED: MoRPHine BOLUS from BAG IV PRN (22:14)
[2022-09-16] MEDS ORDERED: ONDANSETRON INJ 2 MG/ML 2 ML VIAL IV PRN ×2 (22:14→23:58)
[2022-09-16] MEDS ORDERED: MoRPHine SULF/NSS 100 MG/100 ML BAG IV SCH (22:15)
[2022-09-17] MEDS ORDERED: GLYCOPYRROLATE 0.2 MG/ML VIAL IV PRN ×2 (01:10→10:19)
--- NOTE | 2022-09-17 08:46 | Palliative Care Consultation ---
Date of Consultation September 17, 2022 Assessment & Plan (1) Weakness generalized: (2) Dyspnea and respiratory abnormalities: (3) Palliative care by specialist: (4) Discussion about advance care planning held with family member: Plan * FIRER WATERTENDER underway * exam and fam mtg were not needed : family universally in agreement following extensive d/w primary team. case reviewed with primary team and nursing, medications modified for increasing resp effort, grimacing and moaning * reviewed with primary team and nursing. * Pt with good relief form changes later this afternoon. * TS 85min, chart review, discussions with teams, order modification. pt not seen/no charge submitted Thank you for allowing us to participate in the ongoing care of this patient. Please don't hesitate to call or page with any additional concerns. Dr. Keya Casas DNP Director, Palliative Care History of Present Illness Reason for Consultation: "Comfort Care" Attending Physician: Randall Avila MD History of Present Illness 87yo female s/p unwitnessed fall at home - found in hallway by her granddaughter. Pt was non verbal at time of arrival in ED, where imaging revealed resultant +SAH: ED Imaging -CT-Head: Acute subarachnoid hemorrhage in the bilateral frontal and parietal lobe sulci.RIGHT frontal and temporal scalp soft tissue swelling. -CT-Chest: No acute findings in the chest. -CT C Spine: No acute fracture or subluxation of the cervical spine. -CT-A/p: No acute findings in the abdomen or pelvis. Family provided patient's AD directing providers to limit interventions to those focused on comfort and QOL. She was then admitted for comfort care. Palliative medicine has been consulted to assist with EOL mgt at request of hospitalist team. Prior ED visit 09/06 for s/p ground-level fall while trying to raise her garage door, which caused her to fall backwards and hitting her head on concrete. She has a hx aortic stenosis s/p TAVR 08/2019, prior to which she had 50-60% isolated LAD lesion on pre-TAVR cath. Allergies Allergy/AdvReac Type Severity Reaction Status Date / Time prednisone Allergy edema Verified 05/19/22 10:45 acetaminophen AdvReac Mild STOMACH Verified 05/19/22 10:45 CRAMPS Home Medications Medication Instructions Recorded Confirmed Type multivitamin (Daily Multi-Vitamin 1 tab PO DAILY 10/01/18 09/06/22 History tablet) aspirin 81 mg tablet,delayed 81 mg PO DAILY 12/14/19 09/06/22 History release levothyroxine 125 mcg tablet 125 mcg PO DAILYBB 09/06/22 09/06/22 History metoprolol succinate 25 mg 12.5 mg PO HS 09/06/22 09/06/22 History tablet,extended release 24 hr omega-3s 300 el-duy-mbp-other 1 cap PO DAILY 09/06/22 09/06/22 History [id number] oil 1,000 mg capsule ([place]-3 Fish Oil) Patient History Medical History Aortic stenosis Arthritis Asthma Disc degeneration, lumbar GERD without esophagitis Hypothyroidism Macular degeneration Surgical History History of cholecystectomy History of thyroid surgery sub-total thyroidectomy S/P partial colectomy Status post colonoscopy (2009) Family History Aunt Diabetes Uncle Diabetes Social History Smoking Status: Never smoker Hx Alcohol Use: No Hx Substance Use: No Preferred Language: Georgian Communication Ability: Unable Communication Ability Comment: patient unresponsive, FIRER WATERTENDER Beliefs That Will Affect Care: Restorationist marital status: / Current Living Situation: Alone current occupational status: retired Other Information That Helps Us Care for You: No Feels Safe at Home: Yes Assistive Devices: None Review of Systems Review of Systems: Unobtainable due to reduced consciousness Physical Exam Physical Exam: pt with agonal breathing, +mottling BLE respiratory variability family noted to be gathered Results & Data Vital Signs (Past 12 Hours) Vital Signs Temp Pulse Pulse Resp BP Pulse Ox O2 Del Method 09/16/22 23:30 Nasal Cannula 09/16/22 23:30 36.3 C L 88 20 92 Nasal Cannula 09/16/22 23:01 56 L 34 H 164/72 H 87 L Nasal Cannula 09/16/22 22:04 53 L 25 H 174/59 H 100 Non-rebreather 09/16/22 21:28 56 L 09/16/22 21:19 35.8 C L 64 24 129/64 100 Non-rebreather O2 Flow Rate 09/16/22 23:30 2 09/16/22 23:30 2 09/16/22 23:01 6 09/16/22 22:04 15 09/16/22 21:28 09/16/22 21:19 15 Laboratory Results see HPI Diagnostic Findings see HPI PG Care Time/CCT Total # of Minutes Spent Total Time Spent with Patient: Total time spent is greater than 50% in coordination of care (as documented) at patient's floor/unit and/or counseling patient: Coding Level of Care Code New Pt None Patient Type New History Comprehensive Medical Decision Making Low Complexity Diagnoses Weakness generalized R53.1 Dyspnea and respiratory abnormalities R06.00; R06.89 Palliative care by specialist Z51.5 Discussion about advance care planning held with family member Z71.0
--- NOTE | 2022-09-17 08:52 | Hospitalist Progress Note ---
Date of Service September 17, 2022 Assessment & Plan (1) SAH (subarachnoid hemorrhage): Plan: SIFTER OPERATOR - On admission patient was seen at the bedside with multiple family present including 2 daughters, granddaughters, and in-laws. [id number] reports that she was found down with her last known normal around 11:30 in the morning, was seen lying on the ground and EMS was called. She was unresponsive in the field. Per family she had a very clear advanced directive and had not wanted any invasive interventions or artificial prolongation of her life. With her current level of illness all family members agree that she would want to focus purely on comfort and family request moved to comfort measures. They are aware that she has a subarachnoid bleed which would typically be treated at a trauma center with neurosurgery available and with intensive care admission to follow for careful blood pressure control and seizure prevention. they report that they would not want aggressive interventions including ICU admission, and all family agrees that they would like her to be admitted to the third floor here for SIFTER OPERATOR. Would like to focus on a palliative stent including morphine either by oral or drip, anxiety control, and deferring vital checks and any monitoring disruptive to her comfort. Tachypneic, on nonrebreather initial assessment Does not withdraw to thumb pinch bilaterally Pupils are slightly reactive to light bilaterally, does not track light or follow commands Patient is with respiratory distress, morphine GTT started while in ER. Continue morphine gtt Ativan ordered for comfort Comfort care order set including glycopyrrolate on-call Patient is with a right IO in place, will leave for analgesic assess's and is more likely to cause discomfort during removal Palliative care consulted Wean oxygen patient comfort permitting Family at bedside, updated. Patient is unresponsive and in mild respiratory distress. Due to her acute level of illness is not appropriate for and unlikely to survive transition to home hospice if attempted at this time. Will admit to inpatient SIFTER OPERATOR 09/17 - seen this morning, had increased work of breathing. discussed with family present at bedside and plan continues to be wanting to make patient comfortable. Discussed w/ palliative medicine and morphine increased/modified and can be titrated uup for comofort. I would suspect patient to pass in next 24-48 hours and will continue inpatient stay at present Fall, SAH -CT-Head: Acute subarachnoid hemorrhage in the bilateral frontal and parietal lobe sulci.RIGHT frontal and temporal scalp soft tissue swelling. -CT-CHest: No acute findings in the chest. -CT C SPine: No acute fracture or subluxation of the cervical spine. -CT-A/p: No acute findings in the abdomen or pelvis. SIFTER OPERATOR as above Aortic stenosis s/p TAVR 08/2019 Noted, prior to TAVR in 2019 was noted to have a 50-60% isolated LAD lesion on pre-TAVR cath Hypothyroidism Synthroid 125 mcg deferred in the setting of SIFTER OPERATOR Asthma No home inhaler, supplemental O2 for comfort Hypertension Metoprolol, aspirin held in the setting of SIFTER OPERATOR Primary adenocarcinoma of the colon Noted DNR/DNI (2) Comfort measures only status: (3) CHI (closed head injury): (4) Fall: (5) S/P TAVR (transcatheter aortic valve replacement): (6) Hypothyroidism: (7) GERD without esophagitis: (8) Asthma: (9) Arthritis: Admission and Anticipated Discharge Date Admission Date: September 16, 2022 Supervising Physician Co-Signing Physician Notes The patient was not seen by me. The chart was reviewed. She is on comfort care measures. Case discussed with COREY Easley. Agree with assessment and plan Subjective eval this morning, family at bedside. Patient did appear more comfortable initially however more belly/agonal b reathing and discussed with family about ok to provide additional medication/discussed with pallitative and plan to increase the morphine gtt in the meantime. family without further needs at present, instructed to inform of any changes for patient/concerns at this time. Palliative provider to be up to see this morning as well. Physical Exam Physical Exam: chronically ill appearing, unresponsive/obtunded female in bed, family at bedside, unable to follow commands or open eyes R eye with significant hematoma/small laceration, pupils equal/reactive to light mm dry, extremities cool/mottling present tachypneic,agonal breathing at present/air hunger, on 2L NC for comfort abd nondistended, no withdrawal ext: does not withdrawal to painful stimuli Results & Data Results & Data Vital Signs (Past 12 Hours) Vital Signs Temp Pulse Pulse Resp BP Pulse Ox O2 Del Method 09/16/22 23:30 Nasal Cannula 09/16/22 23:30 36.3 C L 88 20 92 Nasal Cannula 09/16/22 23:01 56 L 34 H 164/72 H 87 L Nasal Cannula 09/16/22 22:04 53 L 25 H 174/59 H 100 Non-rebreather 09/16/22 21:28 56 L 09/16/22 21:19 35.8 C L 64 24 129/64 100 Non-rebreather O2 Flow Rate 09/16/22 23:30 2 09/16/22 23:30 2 09/16/22 23:01 6 09/16/22 22:04 15 09/16/22 21:28 09/16/22 21:19 15 Diagnostic Findings Abdomen/Pelvis CT 09/16/22 21:26 Exam(s): CT ABDOMEN + PELVIS Without Contrast EXAM: CT Abdomen and Pelvis Without Intravenous Contrast CLINICAL HISTORY: Reason for exam: fall. TECHNIQUE: Axial computed tomography images of the abdomen and pelvis without intravenous contrast. CTDI is 22.23 mGy and DLP is 1051.25 mGy-cm. Automated exposure control was utilized for the study. A dose lowering technique was utilized adhering to the principles of ALARA. COMPARISON: No relevant prior studies available. FINDINGS: Lung bases: Unremarkable. No mass. No consolidation. Heart: Prosthetic aortic valve. ABDOMEN: Liver: Unremarkable. Gallbladder and bile ducts: Cholecystectomy. No ductal dilation. Pancreas: Unremarkable. No ductal dilation. Spleen: Calcified splenic granulomas. Adrenals: Unremarkable. No mass. Kidneys and ureters: Nonobstructing 4 mm RIGHT lower pole renal calculus. Left-sided parapelvic cysts. No obstructive uropathy. Stomach and bowel: Diverticulosis, without acute diverticulitis. No small bowel obstruction. No free intraperitoneal air. PELVIS: Appendix: No findings to suggest acute appendicitis. Bladder: Distended urinary bladder. No stones. Reproductive: Atrophied uterus. ABDOMEN and PELVIS: Intraperitoneal space: Unremarkable. No free air. No significant fluid collection. Bones/joints: Degenerative changes of the spine. No acute fracture. No dislocation. Soft tissues: Unremarkable. Vasculature: Atherosclerotic changes of the aorta. No abdominal aortic aneurysm. Lymph nodes: Unremarkable. No enlarged lymph nodes. IMPRESSION: No acute findings in the abdomen or pelvis. Electronically signed by: Yonatan Rendon MD 09/16/22 22:[address] 09/16/22 21:26 Exam(s): CT C SPINE EXAM: CT Cervical Spine Without Intravenous Contrast CLINICAL HISTORY: Reason for exam: fall. TECHNIQUE: Axial computed tomography images of the cervical spine without intravenous contrast. CTDI is 22.64 mGy and DLP is 438.92 mGy-cm. Automated exposure control was utilized for the study. A dose lowering technique was utilized adhering to the principles of ALARA. COMPARISON: No relevant prior studies available. FINDINGS: The vertebral body heights are maintained. The craniocervical junction is intact. The atlanto-dens interval is maintained. The dens is intact. There is no spondylolisthesis. Multilevel cervical spondylosis and degenerative disc disease. Straightening of the cervical lordosis. The unenhanced neck soft tissues are grossly unremarkable. The visualized lung apices are grossly clear. IMPRESSION: No acute fracture or subluxation of the cervical spine. Electronically signed by: Yonatan Rendon MD 09/16/22 22:[address] 09/16/22 21:26 Exam(s): CT CHEST Without Contrast EXAM: CT Chest Without Intravenous Contrast CLINICAL HISTORY: Reason for exam: fall. TECHNIQUE: Axial computed tomography images of the chest without intravenous contrast. CTDI is 19 mGy and DLP is 680.79 mGy-cm. Automated exposure control was utilized for the study. A dose lowering technique was utilized adhering to the principles of ALARA. COMPARISON: No relevant prior studies available. FINDINGS: Lungs: Mild atelectasis in the RIGHT upper lobe and LEFT lung base. Pleural space: Unremarkable. No pneumothorax. No significant effusion. Heart: Prosthetic aortic valve. No significant pericardial effusion. No significant coronary artery calcifications. Bones/joints: Degenerative changes of the spine. No acute fracture. No dislocation. Soft tissues: Unremarkable. Vasculature: Atherosclerotic changes of the aorta. No thoracic aortic aneurysm. Lymph nodes: Unremarkable. No enlarged lymph nodes. IMPRESSION: No acute findings in the chest. Electronically signed by: Yonatan Rendon MD 09/16/22 22:[address] 09/16/22 21:26 CR Exam(s): CT HEAD Without Contrast EXAM: CT Head Without Intravenous Contrast CLINICAL HISTORY: Reason for exam: fall. TECHNIQUE: Axial computed tomography images of the head/brain without intravenous contrast. CTDI is 37.01 mGy and DLP is 546.36 mGy-cm. Automated exposure control was utilized for the study. A dose lowering technique was utilized adhering to the principles of ALARA. COMPARISON: No relevant prior studies available. FINDINGS: Acute subarachnoid hemorrhage in the bilateral frontal and parietal lobe sulci. RIGHT frontal and temporal scalp soft tissue swelling. Chronic LEFT subdural hematoma measures 7 mm in maximal thickness. Chronic RIGHT subdural hematoma measures 4 mm in maximal thickness. No intraventricular blood. No midline shift. IMPRESSION: Acute subarachnoid hemorrhage in the bilateral frontal and parietal lobe sulci. RIGHT frontal and temporal scalp soft tissue swelling. Communications: Verify Receipt Electronically signed by: Yonatan Rendon MD 09/16/22 22:03 PM PG Care Time/CCT Total # of Minutes Spent Total Time Spent with Patient: Total time spent is greater than 50% in coordination of care (as documented) at patient's floor/unit and/or counseling patient: Coding Level of Care Code 94167 SUB INP/OBS CARE Diagnoses SAH (subarachnoid hemorrhage) I60.9 Comfort measures only status Z51.5 CHI (closed head injury) S09.90XA Fall W19.XXXA Encounter type: initial encounter S/P TAVR (transcatheter aortic valve replacement) Z95.2 Hypothyroidism E03.9 GERD without esophagitis K21.9 Asthma J45.909 Arthritis M19.90 (4) Fall Encounter type: initial encounter Qualified Code(s): W19.XXXA - Unspecified fall, initial encounter
[2022-09-17] MEDS ORDERED: MoRPHine BOLUS from BAG IV PRN (10:17)
[2022-09-17] MEDS ORDERED: LORazepam 2 MG/1 ML VIAL IV PRN (10:20)
--- NOTE | 2022-09-17 17:48 | Death Pronouncement Note ---
Date of Service September 17, 2022 Pronouncement Note Admission Date September 16, 2022 Date and Time of Date of : 09/17/22 Time of : 17:28 Preliminary Cause of (1) SAH (subarachnoid hemorrhage): Summary 87yo female found down/unresponsive at home with bleeding from her head noted. Imaging on admission noting subarachnoid bleeding in patient with prior wishes for not wanting any invasive interventions or artificial prolongation of life and discussion with family was undertaken to admit patient under comfort me asures to allow for family to be with her and ensure her time left is made comfortable. Placed on RETAIL BEAUTY SPECIALIST, morphine gtt (increased for agonal/respiratory distress in the morning, discussed with patient). Family at bedside, reporting patient appeared comfortable and CTB at 17:28. Additional Data Confirmation of : no pulse, no respirations, no heart sounds and pupils fixed and dilated Attending physician: Randall Avila MD
--- NOTE | 2022-09-17 17:48 | Discharge Summary ---
Date of Service September 17, 2022 Admission HPI Per Admitting Provider Marianela Lopez is an 87-year-old female With past medical history of TAVR, GERD, asthma, arthritis, hypothyroidism. Per ER report: Patient was found down by family in her home with bleeding at the right upper head, nonverbal, flexed position and unresponsive. EMS was called and patient was noted to be minimally responsive. Patient was recommended for RSI in the field however family noted that she has a living will and does not want a measure of measures and would want comfort measures given the situation, intubation was deferred and patient was brought to [facility] in a c-collar Patient was seen at the bedside with multiple family present including 2 daughters, granddaughters, and in-laws. [id number] reports that she was found down with her last known normal around 11:30 in the morning, was seen lying on the ground and EMS was called. She was unresponsive in the field. Per family she had a very clear advanced directive and had not wanted any invasive interventions or artificial prolongation of her life. With her current level of illness all family members agree that she would want to focus purely on comfort and family request moved to comfort measures. They are aware that she has a subarachnoid bleed which would typically be treated at a trauma center with neurosurgery available and with intensive care admission to follow for careful blood pressure control and seizure prevention. they report that they would not want aggressive interventions including ICU admission, and all family agrees that they would like her to be admitted to the third floor here for PALS SPECIALIST. Would like to focus on a palliative stent including morphine either by oral or drip, anxiety control, and deferring vital checks and any monitoring disruptive to her comfort. Medical History: Reviewed Medications: Reviewed Surgical History: Reviewed Family history: Reviewed Allergies: Reviewed Social History: Reviewed Code Status: PALS SPECIALIST, DNR/DNI Admission Exam Per Admitting Provider General: Unresponsive. Does not follow 1 or 2 step commands or open eyes on command. HEENT: Right eye with orbital hematoma and small laceration. Pupils equal and reactive to light, does not track light Pulm: Tachypneic, increased work of breathing on nonrebreather. Lungs are grossly clear and without wheezing Cardiac: Bradycardic, SM. Radial pulses intact and symmetrical. Abdominal: nondistended, soft. BS present. Extremities: Right lower extremity IO access in place. Sensation/strength testing limited by obtunded status. Does not withdraw to thumb pinch bilaterally Principal Diagnosis Subarachnoid Hemorrhage Discharge Exam in bed surrounded by family, unresponsive, no pulses, no respirations, no heart sounds, pupils fixed/dilated and nonreactive. does not withdrawal to painful stimuli, mottled appearance of skin Discharge Data Allergies Allergy/AdvReac Type Severity Reaction Status Date / Time prednisone Allergy edema Verified 05/19/22 10:45 acetaminophen AdvReac Mild STOMACH Verified 05/19/22 10:45 CRAMPS Consultations 09/16/22 22:16 ED Decision to Admit Stat 09/16/22 23:58 Consult Palliative Care Routine Ordered Studies Abdomen/Pelvis CT 09/16/22 21:26 Exam(s): CT ABDOMEN + PELVIS Without Contrast EXAM: CT Abdomen and Pelvis Without Intravenous Contrast CLINICAL HISTORY: Reason for exam: fall. TECHNIQUE: Axial computed tomography images of the abdomen and pelvis without intravenous contrast. CTDI is 22.23 mGy and DLP is 1051.25 mGy-cm. Automated exposure control was utilized for the study. A dose lowering technique was utilized adhering to the principles of ALARA. COMPARISON: No relevant prior studies available. FINDINGS: Lung bases: Unremarkable. No mass. No consolidation. Heart: Prosthetic aortic valve. ABDOMEN: Liver: Unremarkable. Gallbladder and bile ducts: Cholecystectomy. No ductal dilation. Pancreas: Unremarkable. No ductal dilation. Spleen: Calcified splenic granulomas. Adrenals: Unremarkable. No mass. Kidneys and ureters: Nonobstructing 4 mm RIGHT lower pole renal calculus. Left-sided parapelvic cysts. No obstructive uropathy. Stomach and bowel: Diverticulosis, without acute diverticulitis. No small bowel obstruction. No free intraperitoneal air. PELVIS: Appendix: No findings to suggest acute appendicitis. Bladder: Distended urinary bladder. No stones. Reproductive: Atrophied uterus. ABDOMEN and PELVIS: Intraperitoneal space: Unremarkable. No free air. No significant fluid collection. Bones/joints: Degenerative changes of the spine. No acute fracture. No dislocation. Soft tissues: Unremarkable. Vasculature: Atherosclerotic changes of the aorta. No abdominal aortic aneurysm. Lymph nodes: Unremarkable. No enlarged lymph nodes. IMPRESSION: No acute findings in the abdomen or pelvis. Electronically signed by: Yonatan Rendon MD 09/16/22 22:[address] 09/16/22 21:26 Exam(s): CT C SPINE EXAM: CT Cervical Spine Without Intravenous Contrast CLINICAL HISTORY: Reason for exam: fall. TECHNIQUE: Axial computed tomography images of the cervical spine without intravenous contrast. CTDI is 22.64 mGy and DLP is 438.92 mGy-cm. Automated exposure control was utilized for the study. A dose lowering technique was utilized adhering to the principles of ALARA. COMPARISON: No relevant prior studies available. FINDINGS: The vertebral body heights are maintained. The craniocervical junction is intact. The atlanto-dens interval is maintained. The dens is intact. There is no spondylolisthesis. Multilevel cervical spondylosis and degenerative disc disease. Straightening of the cervical lordosis. The unenhanced neck soft tissues are grossly unremarkable. The visualized lung apices are grossly clear. IMPRESSION: No acute fracture or subluxation of the cervical spine. Electronically signed by: Yonatan Rendon MD 09/16/22 22:[address] 09/16/22:26 Exam(s): CT CHEST Without Contrast EXAM: CT Chest Without Intravenous Contrast CLINICAL HISTORY: Reason for exam: fall. TECHNIQUE: Axial computed tomography images of the chest without intravenous contrast. CTDI is 19 mGy and DLP is 680.79 mGy-cm. Automated exposure control was utilized for the study. A dose lowering technique was utilized adhering to the principles of ALARA. COMPARISON: No relevant prior studies available. FINDINGS: Lungs: Mild atelectasis in the RIGHT upper lobe and LEFT lung base. Pleural space: Unremarkable. No pneumothorax. No significant effusion. Heart: Prosthetic aortic valve. No significant pericardial effusion. No significant coronary artery calcifications. Bones/joints: Degenerative changes of the spine. No acute fracture. No dislocation. Soft tissues: Unremarkable. Vasculature: Atherosclerotic changes of the aorta. No thoracic aortic aneurysm. Lymph nodes: Unremarkable. No enlarged lymph nodes. IMPRESSION: No acute findings in the chest. Electronically signed by: Yonatan Rendon MD 09/16/22 22:[address] 09/16/22 21:26 CR Exam(s): CT HEAD Without Contrast EXAM: CT Head Without Intravenous Contrast CLINICAL HISTORY: Reason for exam: fall. TECHNIQUE: Axial computed tomography images of the head/brain without intravenous contrast. CTDI is 37.01 mGy and DLP is 546.36 mGy-cm. Automated exposure control was utilized for the study. A dose lowering technique was utilized adhering to the principles of ALARA. COMPARISON: No relevant prior studies available. FINDINGS: Acute subarachnoid hemorrhage in the bilateral frontal and parietal lobe sulci. RIGHT frontal and temporal scalp soft tissue swelling. Chronic LEFT subdural hematoma measures 7 mm in maximal thickness. Chronic RIGHT subdural hematoma measures 4 mm in maximal thickness. No intraventricular blood. No midline shift. IMPRESSION: Acute subarachnoid hemorrhage in the bilateral frontal and parietal lobe sulci. RIGHT frontal and temporal scalp soft tissue swelling. Communications: Verify Receipt Electronically signed by: Yonatan Rendon MD 09/16/22 22:03 PM Hospital Course (1) SAH (subarachnoid hemorrhage): Patient was found down/unresponsive at home with bleeding from her head. Unclear if bleed leading to fall or fall leading to bleed, however on imaging with Acute subarachnoid hemorrhage in the bilateral frontal and parietal lobe sulci and lengthy discussion was undertaken with family including 2 daughters, granddaughters, and in-laws and had a very clear advance directive that stated she would not want any invasive interventions or artificial prolongation of her life. DNR/DNI confirmed With her current level of illness all family members agreed that she would want to focus purely on comfort and family request moved to comfort measures. They were made aware that subarachnoid bleed which would typically be treated at a trauma center with neurosurgery available and with intensive care admission to follow for careful blood pressure control and seizure prevention. They reported that they would not want aggressive interventions including ICU admission, and all family agreed that they wanted her admitted for comfort me asures and palliative approach and palliative medicine was consulted Morphine gtt initiated and titrated for comfort. Other comfort medications ordered as needed. Family spent the day with Ms Lopez at bedside and were there at time of . Reports she was comfortable appearing at time of passing. Fall, SAH Unclear fall occurred due TO the SAH or from result of the fall given patient found down unresponsive at home -CT-Head: Acute subarachnoid hemorrhage in the bilateral frontal and parietal lobe sulci.RIGHT frontal and temporal scalp soft tissue swelling. -CT-CHest: No acute findings in the chest. -CT C SPine: No acute fracture or subluxation of the cervical spine. -CT-A/p: No acute findings in the abdomen or pelvis. PALS SPECIALIST as above Aortic stenosis s/p TAVR 08/2019 Noted, prior to TAVR in 2019 was noted to have a 50-60% isolated LAD lesion on pre-TAVR cath Hypothyroidism Was on 125mcg replacement daily Asthma No home inhaler, supplemental O2 for comfort Hypertension Metoprolol, aspirin held in the setting of PALS SPECIALIST Primary adenocarcinoma of the colon Noted (2) CHI (closed head injury): (3) Fall: (4) S/P TAVR (transcatheter aortic valve replacement): (5) Hypothyroidism: (6) GERD without esophagitis: (7) Asthma: (8) Arthritis: (9) Comfort measures only status: Total Time Total Time Spent Total Time Spent (In Minutes): 45 Discharge Plan Discharge Items Patient Disposition: Other Date/Time: 09/17/22 17:28 Coding Level of Care Code 22961 INP/OBS DISCH >30 MIN Diagnoses SAH (subarachnoid hemorrhage) I60.9 CHI (closed head injury) S09.90XA Fall W19.XXXA Encounter type: initial encounter S/P TAVR (transcatheter aortic valve replacement) Z95.2 Hypothyroidism E03.9 GERD without esophagitis K21.9 Asthma J45.909 Arthritis M19.90 Comfort measures only status Z51.5
== END 2022-09-17 23:00 | disposition expired | DRG 951 ==
LOC: ED 21:10 → SUATTDRO 22:24 → 3W 22:24